=== PATIENT | female | born 1955 | race Caucasian/White ===

== ENCOUNTER → 2017-09-30 | Outpatient (CLI) | payer OTHER ==
--- NOTE | 2017-09-30 08:53 | US ---
EXAMINATION TYPE: US kidneys/renal and bladder DATE OF EXAM: 09/30/2017 COMPARISON: NONE CLINICAL HISTORY: N28.89 Other specified disorders of kidneyureter, pyelocaliectasis. EXAM MEASUREMENTS: Right Kidney: 12.7 x 5.9 x 5.0 cm Left Kidney: 11.2 x 4.6 x 4.6 cm Right Kidney: moderate hydro Left Kidney: No hydronephrosis or masses seen Bladder: wnl No nephrolithiasis is seen. No masses are identified. The urinary bladder is anechoic. Bilateral ureteral jets are seen. IMPRESSION: Moderate right-sided hydronephrosis of uncertain etiology.
== END | disposition home or self-care (01) ==
LOC: RADUSWWP 08:09
PROVIDERS: ATTEND Family Medicine
DX: N13.30 Unspecified hydronephrosis (principal)
CPT/HCPCS: 76770

== ENCOUNTER → 2017-11-18 | Outpatient (CLI) | payer OTHER ==
[~2017-11-18] MED LIST: FUROSEMIDE 10 MG/ML 2 ML VIAL IV ONE
--- NOTE | 2017-11-19 09:43 | NM ---
EXAMINATION TYPE: NM renal flow and function DATE OF EXAM: 11/19/2017 COMPARISON: September 30, 2017 ultrasound kidneys HISTORY: History of hydronephrosis Following administration of 10.4 mCi Tc99m MAG3. Immediate images post injection. FINDINGS: Split renal function percentage Left: 49.7 %. Split renal function percentage Right: 50.3 %. Max renal flow left: 2.5 minutes. Max renal flow right: 50.3 minutes. Satisfactory accumulation of radiotracer within both renal collecting systems. T 1/2 left: 18.5 minutes. T 1/2 right: Not Available minutes FINDINGS: There is severe hydronephrosis right kidney up to the level of the right UPJ. There is nonvisualizati on of the right ureter throughout the course of the examination. No evidence for left-sided hydroneph rosis. IMPRESSION: Severe right-sided hydronephrosis with high-grade right UPJ obstruction which may be acquired or jason enital.
== END | disposition home or self-care (01) ==
LOC: RADNMMAIN 13:56
PROVIDERS: ATTEND Urology
DX: Z53.9 Procedure and treatment not carried out, unspecified reason (principal)
CPT/HCPCS: 78707